=== PATIENT | female | born 1970 | race Caucasian/White ===

== ENCOUNTER → 2020-06-19 | Outpatient (CLI) | payer OTHER ==
--- NOTE | 2020-06-19 09:43 | RADIOLOGY REPORT (SQ) ---
EXAM DESCRIPTION: COOKIE SWALLOW IMAGES COMPLETED DATE/TIME: 06/19/2020 9:12 am REASON FOR STUDY: DYSPHAGIA R22.1 LOCALIZED SWELLING, MASS AND LUMP, NECK globus sensation History of Hodgkin's lymphoma with radiation. Difficulty swallowing, neck swelling, and vocal cord d amage due to radiation COMPARISON: None. TECHNIQUE: Videofluoroscopic swallowing examination was performed in conjunction with speech patholo gy. Videofluoroscopic imaging was obtained and reviewed and these are the findings: RADIATION DOSE: 1 minutes 45 seconds of fluoroscopy was used. 1 images saved to PACS. LIMITATIONS: None FINDINGS: The patient was brought into the fluoro room and placed upright on a modified barium swall ow chair. The patient was then given multiple consistencies mixed with barium to swallow under live fluoroscopic video guidance. According to the Speech Pathologist there was no penetration or aspirat ion. IMPRESSION: NO EVIDENCE OF PENETRATION OR ASPIRATION. PLEASE SEE SPEECH PATHOLOGIST REPORT FOR OTHER FINDINGS AND RECOMMENDATIONS. COMMENT: Quality ID [id number]: Final reports for procedures using fluoroscopy that document radiation exp osure indices, or exposure time and number of fluorographic images (if radiation exposure indices are not available) TECHNICAL DOCUMENTATION: JOB ID: [id number] 2010 [employer]- All Rights Reserved Reading location - IP/workstation name: [email or web address] [id number]
--- NOTE | 2020-06-19 10:02 | ST Modified Barium Swallow ---
Recommendation - Recommendations Recommendations: No diet change recommendations, functional swallowing skills. Recommend patient follow up with physician regarding voice concerns. Medical Diagnoses - Medical Diagnoses Other Medical Diagnoses/Co-Morbidities: per patient report: history of breast cancer with radiation in 2000, thyroid cancer with surgical removal in 2013, chronic cough, left TVC paralysis - ICD-10 Tx Diagnosis Coding (1) Dysphagia, unspecified ICD-10 Code(s): R13.10 - DYSPHAGIA, UNSPECIFIED (2) Localized swelling, mass and lump, neck ICD-10 Code(s): R22.1 - LOCALIZED SWELLING, MASS AND LUMP, NECK ST Modified Barium Swallow - General Date: 06/19/20 Referring Physician: Dr. Black Risks/Precautions: None Date of Onset: 06/01/16 - approximate onset Reason for Referral: globus sensation - History History obtained from: Patient - Patient reports having intermittent difficulty swallowing "once every couple weeks", specifically with meats. She reports this has been ongoing for several years. Does also have occasional difficulty with liquids. -: Medical - Patient reports hisotry of radiation therapy for breast cancer in 2000, thyroid cancer with surgical intervention (removal) in 2013, and left true vocal fold paralysis due to post radiation changes. Medications: per patient report: aspirin, protonix, synthroid, topomax, iron cymbalta, propanolol Allergies: percocet, sulfa - Functional Status Prior Functional Status: INDEPENDENT: feeding - independent Current Functional Limitations: feeding - globus, coughing with meats - Subjective Patient/caregiver goal(s): safe swallow, r/o aspiration Cognitive-Linguistic Function: WNL Speech Intelligibility: WNL Current Nutritional Means: PO Current PO diet: Regular - avoids crumbly textures Current symptoms: Coughing, c/o Globus sensation Pain: Patient reports, 0/5 - Objective Assessment: Upright, Left Lateral - Food Trials Used Food trials used: Thin liquids, Pureed, Regular The patient: Was Able to Self Feed - Oral-Motor Skills Dentition: Full Velo-pharyngeal function: Unremarkable Laryngeal Function: hoarse - Assessment Oral prep: Normal Labial closure: Adequate Leakage: None Mastication: Adequate Lingual Movement: Normal Oral stage: Normal for this Procedure - Pharyngeal Stage Initiation of Pharyngeal Stage Reflex: Normal Decreased laryngeal elevation: No Reduced Velopharyngeal Closure: no Reduced pressure generation: No reduced tongue-based retraction: No Pre-swallow pooling in valleculae: None Pre-Swallow pooling in pyriforms: None Reduced Thyro-Hyoid approximation: No Reduced epiglottic excursion: No - of note, epiglottic structure appeared diminished Reduced pharyngeal peristalsis/contraction: No Post-swallow residulas vallecular: None Post-Swallow residuals in pyriforms: None Pharyngeal Stage Comments: consistent, very mild residue seen just at UES, however, this cleared with liquid wash or dry swallow - Fall Risk Assessment Medications/Conditions that increase fall risks include: Antidepressants, sedatives, anti-arrhythmic, diuretic, benzodiazipenes, neuroleptics. BP regulation problems, cardiac problems, balance or gait deficits, neurological problems. Is patient considered at risk for falls: no Fall Risk Actions Taken: No action needed - Treatment / Educational Needs: Treatment/Education Needs: Treatment consisted of patient education on the role of the Speech Pathologist. Patient's plan of care and golas were communicated as well as scheduling and attendance policies. Recommendations for initial home program were shared. Patient demonstrated understanding and verbalized agr eement. - Impression/Summary Laryngeal Penetration: No Tracheal Aspiration: no Patient presents with: Normal swallow at eval Risk of Aspiration: Minimal - Recommendations Solid diet recommendations: Regular Liquid Diet Modification: Thin Dysphagia therapy with MEDICAL PAYMENT POSTER: no Reflux Precautions: Taught to Patient Recommended techniques: Fully Upright During Meal, Alternate Bites/Sips Information, Precautions and Recommendations: Patient (Written), Patient (Verbal) - Time Total Time: 30 - Plan of Care Strategies to optimize patient understanding include:: ongoing assessment of educational needs, implementation of educational strategies, and re-education. - - -: Thank you for the opportunity to work with this patient and his/her family. Should you have any questions about this patient's plan or progress, I can be reached at [phone].
--- NOTE | 2020-06-19 11:40 | RADIOLOGY REPORT (SQ) ---
EXAM DESCRIPTION: CT SOFT TISSUE NECK WITH IMAGES COMPLETED DATE/TIME: 06/19/2020 7:14 am REASON FOR STUDY: NECK NODULE R22.1 LOCALIZED SWELLING, MASS AND LUMP, NECK. Hodgkin's lymphoma in 2001 status post radiation. Persistent difficulty swallowing and damage to vocal cords secondary to radiation. COMPARISON: None. TECHNIQUE: Post IV contrasted scanning from skull base through lung apices with review of bone, soft tissue and lung windows. Reconstructed coronal and sagittal MPR images reviewed. All images stored on PACS. All CT scanners at this facility use dose modulation, iterative reconstruction, and/or weight based d osing when appropriate to reduce radiation dose to as low as reasonably achievable (ALARA). [facility]: Dose Right [facility]: CareDose [facility]: Dose Right [facility]: Teradose 4D [facility]: [employer] CONTRAST TYPE AND DOSE: contrast/concentration: Isovue 350.00 mmol/ml; Total Contrast Delivered: 75. 0 ml; Total Saline Delivered: 40.0 ml RENAL FUNCTION: GFR > 60. RADIATION DOSE: . LIMITATIONS: None. FINDINGS: SKULL BASE: Intact. MAJOR SALIVARY GLANDS: No solid or cystic masses. No inflammatory changes. LYMPHADENOPATHY: Small cervical, occipital and submandibular lymph nodes not enlarged by CT criteria. No suspicious features. MUCOSAL MASSES OR ASYMMETRY: No mucosal masses or asymmetry. LARYNX/CORDS: No abnormal findings. VASCULAR STRUCTURES: The major vessels are patent. LUNG APICES: Linear chronic consolidation at the medial left upper lobe and to a lesser extent center hole reamer ior and medial right upper lobe, consistent with post radiation change. No focal consolidation or pl eural effusion. BONES: Intact. THYROID: Diminutive thyroid gland with minimal thyroid tissue visualized. PARANASAL SINUSES: Clear. OTHER: Skin thickening anterior left chest wall and bilateral axillary clips may be postsurgical prakash ge. IMPRESSION: 1. No abnormality of the soft tissues of the neck. 2. Probable post radiation change at the lung apices. 3. Skin thickening at the left anterior chest probably post treatment change. Acute cellulitis could also have this appearance. TECHNICAL DOCUMENTATION: JOB ID: [id number] Quality ID # [id number]: Final reports with documentation of one or more dose reduction techniques (e.g., Au tomated exposure control, adjustment of the mA and/or kV according to patient size, use of iterative reconstruction technique) 2010 [employer]- All Rights Reserved Reading location - IP/workstation name: [email or web address]
== END ==
LOC: RAD 07:46
PROVIDERS: ATTEND Otolaryngology
DX: R13.10 Dysphagia, unspecified (principal); R22.1 Localized swelling, mass and lump, neck
CPT/HCPCS: 70491; 74230; 82565